=== PATIENT | female | born 1965 ===

== ENCOUNTER → 2025-02-16 | Outpatient (CLI) | payer SELFPAY ==
[2025-02-16 13:25] LABS: BASOPHILS ABSOLUTE AUTO 0.05 K/mm3 (0.00-0.23); BASOPHILS PERCENT AUTO 0 % (0-2); EOSINOPHILS ABSOLUTE AUTO 0.05 K/mm3 (0.00-0.68); EOSINOPHILS PERCENT AUTO 0 % (0-6); Hemoglobin 19.8 g/dL (11.5-16.0); IMMATURE GRAN ABSOLUTE AUTO 0.04 K/mm3 (0.00-0.10); IMMATURE GRAN PERCENT AUTO 0 % (0-1); LYMPHOCYTES ABSOLUTE AUTO 1.98 K/mm3 (0.84-5.20); LYMPHOCYTES PERCENT AUTO 17 % (21-46); MONOCYTES ABSOLUTE AUTO 0.83 K/mm3 (0.16-1.47); MONOCYTES PERCENT AUTO 7 % (4-13); Mean Corpuscular HGB 30.3 pg (26.0-34.0); Mean Corpuscular HGB Conc 33.7 g/dL (31.5-36.5); Mean Corpuscular Volume 90 fL (80-100); NEUTROPHILS ABSOLUTE AUTO 8.51 K/mm3 (1.96-9.15); NEUTROPHILS PERCENT AUTO 74 % (41-73); Platelet Count 236 K/mm3 (150-400); RDW Coefficient Variation 13.1 % (11.7-14.2); RDW Standard Deviation 42.1 fL (35.1-46.3); Red Blood Cell Count 6.53 M/mm3 (3.80-5.20); White Blood Cell Count 11.46 K/mm3 (4.00-11.30)
[2025-02-16 13:27] LABS: Hematocrit 58.8 % (33.0-51.0)
[2025-02-16 13:39] LABS: Albumin, Blood 3.8 g/dL (3.4-5.0); Bilirubin, Total 0.4 mg/dL (0.1-1.0); Bun/Creatinine Ratio 12.9 (12.0-20.0); Calcium, Blood 9.9 mg/dL (8.5-10.1); Creatinine, Blood 1.01 mg/dL (0.40-1.00); Potassium, Blood 4.2 mmol/L (3.5-5.5); Total Protein, Blood 7.8 g/dL (6.4-8.2)
[2025-02-18 02:58] LABS: ERYTHROPOIETIN 3 mU/mL (4-27)
== END | disposition home or self-care (01) ==
LOC: LAB SHORT 13:20 → LAB 13:20
PROVIDERS: Family Medicine
DX: D58.2 Other hemoglobinopathies (principal); R42 Dizziness and giddiness
CPT/HCPCS: 80053; 82668; 85025

== ENCOUNTER 2025-05-25 10:08 | Day surgery (SDC) | payer OTHER ==
[~2025-05-25] VITALS: Ht 175.3 cm; Wt 65.1 kg
[~2025-05-25 10:08] MED LIST: ALBU90OI INH; ESCI10 PO; Lactated Ringer's 1,000 ML IV ONE; propofoL 50 ML IV ONE
[2025-05-25] MEDS ORDERED: ESCI20 (10:31)
[2025-05-25] MEDS ORDERED: Lactated Ringer's 1,000 ML IV ONE (11:08)
--- NOTE | 2025-05-25 13:04 | NUR ---
05/25/25 1304 Yudy Valencia PATIENT NOTED TO HAVE EXPIRATORY WHEEZES AFTER PROCEDURE. O2 SATS 99-100%. PT DENIED ANY COMPLAINTS. DENIED SOB OR CP AND STATED SHE FELT FINE. NO COUGH NOTED. PT HAS ASTHMA AND REPORTED THAT SOMETIMES SHE DOES GET WHEEZY. HAS ALBUTEROL AT HOME THAT SHE USES NEEDED. CONSULTED WITH DR VEGAS REGARDING THE EXP WHEEZES. HE ADVISED OKAY TO DISCHARGE HOME AND TO HAVE PT USE HER INHALER SOON SHE GETS HOME. PT WAS ADVISED OF THIS AND SHE VERBALIZED UNDERSTANDING AND AGREES TO USE ALBUTEROL WHEN SHE GETS HOME TODAY.
== END 2025-05-25 12:44 | disposition home or self-care (01) ==
LOC: ORSCSDS 10:08
PROVIDERS: Specialist
PROC: 0DBL8ZX Excision of Transverse Colon, Via Natural or Artificial Opening Endoscopic, Diagnostic (ICD-10-PCS; principal; 2025-05-25 11:45)
DX: Z12.11 Encounter for screening for malignant neoplasm of colon (principal); Z85.038 Personal history of other malignant neoplasm of large intestine; D12.3 Benign neoplasm of transverse colon; K64.8 Other hemorrhoids; Z90.49 Acquired absence of other specified parts of digestive tract; J45.909 Unspecified asthma, uncomplicated; Z87.891 Personal history of nicotine dependence; Z79.899 Other long term (current) drug therapy
CPT/HCPCS: 88305; J2704; J7120